=== PATIENT | male | born 1970 | race Caucasian/White ===

== ENCOUNTER 2017-09-03 21:29 | Inpatient (IN) | payer BC, OTHER ==
[2017-09-03] MEDS ORDERED: PIPER-TAZO 3.375 GM IV (PMX) 100 ML IVPB (21:52)
[2017-09-03] MEDS: HYDROmorphONE 1 MG/5 ML IV SYRINGE IV (22:34)
[2017-09-03] MEDS: ONDANSETRON 4 MG INJ IV (22:34)
[2017-09-03] MEDS: morphine 10 MG INJ IV (22:35)
[2017-09-03] MEDS: SODIUM CHLORIDE 0.9% 1L BAG IV* (22:37)
[2017-09-03 22:45] LABS: ADD MAN DIFF? NO
[2017-09-03 22:48] LABS: ABNORMAL IP MESSAGE 1; BASOPHILS % 0.3 % (0.0-2.0); EOSINOPHILS % 0.1 % (0.0-7.0); HEMATOCRIT 42.6 % (42.0-52.0); HEMOGLOBIN 13.8 g/dl (14.0-18.0); LYMPHOCYTES # 0.5 10^3/ul (0.8-2.9); LYMPHOCYTES % 4.5 % (15.0-51.0); MEAN CORPUSCULAR HEMOGLOBIN 30.3 pg (29.0-33.0); MEAN CORPUSCULAR HGB CONC 32.4 g/dl (32.0-37.0); MEAN CORPUSCULAR VOLUME 93.4 fl (82.0-101.0); MEAN PLATELET VOLUME 9.7 fl (7.4-10.4); MONOCYTE # 0.1 10^3/ul (0.3-0.9); MONOCYTES % 1.2 % (0.0-11.0); NEUTROPHIL # 9.4 10^3/ul (1.6-7.5); NEUTROPHILS % 93.7 % (39.0-77.0); PLATELET COUNT 291 10^3/UL (140-415); POSITIVE DIFF @See below; RED BLOOD COUNT 4.56 10^6/ul (4.70-6.10); RED CELL DISTRIBUTION WIDTH 13.2 % (11.5-14.5)
[2017-09-03 23:16] LABS: ALANINE AMINOTRANSFERASE 206 IU/L (13-69); ALBUMIN 4.1 g/dl (3.3-4.9); ALBUMIN/GLOBULIN RATIO 1.36; ALKALINE PHOSPHATASE 253 IU/L (42-121); ANION GAP 17 (8-16); ASPARTATE AMINO TRANSFERASE 136 IU/L (15-46); BILIRUBIN,INDIRECT 1.1 mg/dl (0-1.1); BILIRUBIN,TOTAL 2.1 mg/dl (0.2-1.3); BLOOD UREA NITROGEN 12 mg/dl (7-20); CALCIUM 8.9 mg/dl (8.4-10.2); CARBON DIOXIDE 29 mmol/L (21-31); CHLORIDE 103 mmol/L (97-110); CREATININE 1.14 mg/dl (0.61-1.24); GLUCOSE 132 mg/dl (70-220); POTASSIUM 4.6 mmol/L (3.5-5.1); SODIUM 144 mmol/L (135-144); TOTAL PROTEIN 7.1 g/dl (6.1-8.1)
[2017-09-03 23:22] LABS: LACTIC ACID 2.5 mmol/L (0.5-2.0)
[2017-09-03 23:24] LABS: INR 1.05; PARTIAL THROMBOPLASTIN TIME 29.2 Sec (25.0-35.0); PROTIME 13.8 Sec (11.9-14.9); PT RATIO 1.1
[2017-09-03] MEDS: CEFEPIME 1GM/50 ML (PMX) 50 ML IVPB (23:28)
[2017-09-03 23:31] LABS: TROPONIN-I < 0.012 ng/ml (0.00-0.12)
[2017-09-04 00:13] LABS: LACTIC ACID 1.3 mmol/L (0.5-2.0)
[2017-09-04] MEDS: KETOROLAC 30 MG INJ IV (00:59)
[2017-09-04] MEDS: CEFTRIAXONE 1 GM/50 ML (PMX) 50 ML IVPB (01:00)
[2017-09-04] MEDS: metroNIDAZOLE 500 MG/NS (PMX) 100 ML IVPB (01:00)
[2017-09-04] MEDS: HYDROmorphONE 1 MG/5 ML IV SYRINGE IV (01:07)
[2017-09-04] MEDS: HALOPERIDOL 5 MG INJ IV (01:07)
[2017-09-04 03:47] LABS: LACTIC ACID 1.5 mmol/L (0.5-2.0)
[2017-09-04] MEDS ORDERED: ONDANSETRON 4 MG INJ IV (04:30)
[2017-09-04 05:49] LABS: ADD MAN DIFF? NO
[2017-09-04 05:52] LABS: ABNORMAL IP MESSAGE 1; BASOPHILS % 0.2 % (0.0-2.0); HEMATOCRIT 37.8 % (42.0-52.0); HEMOGLOBIN 12.4 g/dl (14.0-18.0); LYMPHOCYTES # 0.3 10^3/ul (0.8-2.9); LYMPHOCYTES % 2.3 % (15.0-51.0); MEAN CORPUSCULAR HEMOGLOBIN 30.2 pg (29.0-33.0); MEAN CORPUSCULAR HGB CONC 32.8 g/dl (32.0-37.0); MEAN CORPUSCULAR VOLUME 92.2 fl (82.0-101.0); MEAN PLATELET VOLUME 10.4 fl (7.4-10.4); MONOCYTE # 0.7 10^3/ul (0.3-0.9); MONOCYTES % 6.2 % (0.0-11.0); NEUTROPHIL # 10.6 10^3/ul (1.6-7.5); PLATELET COUNT 195 10^3/UL (140-415); POSITIVE DIFF @See below; RED CELL DISTRIBUTION WIDTH 13.3 % (11.5-14.5)
[2017-09-04 05:52] LABS: WHITE BLOOD COUNT 11.7 10^3/ul (4.8-10.8)
[2017-09-04] MEDS: PANTOPRAZOLE (EC) 40 MG TAB PO (06:11)
[2017-09-04 06:21] LABS: NEUTROPHILS % 90.8 % (39.0-77.0)
[2017-09-04 06:25] LABS: ANION GAP 15 (8-16); BLOOD UREA NITROGEN 13 mg/dl (7-20); CALCIUM 7.5 mg/dl (8.4-10.2); CARBON DIOXIDE 21 mmol/L (21-31); CHLORIDE 110 mmol/L (97-110); CREATININE 1.09 mg/dl (0.61-1.24); GLUCOSE 104 mg/dl (70-220); MAGNESIUM 1.4 mg/dl (1.7-2.5); PHOSPHORUS 2.2 mg/dl (2.5-4.9); POTASSIUM 3.9 mmol/L (3.5-5.1); SODIUM 142 mmol/L (135-144)
[2017-09-04] MEDS: morphine 2 MG INJ IV ×4 (08:30→21:49)
[2017-09-04] MEDS: MAGNESIUM SULFATE 3 GM in DEXTROSE 5% 100 ML IVPB (08:32)
[2017-09-04] MEDS: VALSARTAN 80 MG TAB PO (08:42)
[2017-09-04] MEDS: NEBIVOLOL 5 MG TAB PO (08:42)
[2017-09-04] MEDS: AMIODARONE 200 MG TAB PO (08:44)
[2017-09-04] MEDS: LEVOFLOXACIN 500MG/D5W (PMX) 100 ML IVPB (09:00)
[2017-09-04 09:02] LABS: ALANINE AMINOTRANSFERASE 156 IU/L (13-69); ALBUMIN 3.2 g/dl (3.3-4.9); ALKALINE PHOSPHATASE 181 IU/L (42-121); ASPARTATE AMINO TRANSFERASE 111 IU/L (15-46); BILIRUBIN,INDIRECT 1.4 mg/dl (0-1.1); BILIRUBIN,TOTAL 3.4 mg/dl (0.2-1.3); TOTAL PROTEIN 5.8 g/dl (6.1-8.1)
[2017-09-04] MEDS: ACETAMINOPHEN 325 MG TAB PO ×2 (12:10→17:52)
[2017-09-04] MEDS: ERTAPENEM SODIUM 1 GM in SOD CHLORIDE 0.9% 100 ML IVPB (12:11)
[2017-09-04] MEDS: RIVAROXABAN 20 MG TABLET PO (17:52)
[2017-09-05] MEDS: morphine 2 MG INJ IV ×4 (01:56→15:16)
[2017-09-05] MEDS: ACETAMINOPHEN 325 MG TAB PO (01:56)
[2017-09-05] MEDS: ZOLPIDEM 5 MG TAB PO (02:56)
[2017-09-05] MEDS: PANTOPRAZOLE (EC) 40 MG TAB PO (05:48)
[2017-09-05 06:08] LABS: HEMATOCRIT 37.1 % (42.0-52.0); HEMOGLOBIN 12.3 g/dl (14.0-18.0); MEAN CORPUSCULAR HEMOGLOBIN 30.4 pg (29.0-33.0); MEAN CORPUSCULAR HGB CONC 33.2 g/dl (32.0-37.0); MEAN CORPUSCULAR VOLUME 91.8 fl (82.0-101.0); MEAN PLATELET VOLUME 10.4 fl (7.4-10.4); PLATELET COUNT 187 10^3/UL (140-415); POSITIVE DIFF @See below; RED BLOOD COUNT 4.04 10^6/ul (4.70-6.10); RED CELL DISTRIBUTION WIDTH 13.7 % (11.5-14.5)
[2017-09-05 06:08] LABS: WHITE BLOOD COUNT 16.1 10^3/ul (4.8-10.8)
[2017-09-05 06:37] LABS: ALANINE AMINOTRANSFERASE 126 IU/L (13-69); ALBUMIN 2.6 g/dl (3.3-4.9); ALBUMIN/GLOBULIN RATIO 1.13; ALKALINE PHOSPHATASE 140 IU/L (42-121); ANION GAP 10 (8-16); ASPARTATE AMINO TRANSFERASE 58 IU/L (15-46); BILIRUBIN,INDIRECT 1.1 mg/dl (0-1.1); BILIRUBIN,TOTAL 3.8 mg/dl (0.2-1.3); BLOOD UREA NITROGEN 19 mg/dl (7-20); CALCIUM 7.8 mg/dl (8.4-10.2); CARBON DIOXIDE 25 mmol/L (21-31); CHLORIDE 108 mmol/L (97-110); CREATININE 1.04 mg/dl (0.61-1.24); GLUCOSE 104 mg/dl (70-220); POTASSIUM 4.4 mmol/L (3.5-5.1); SODIUM 139 mmol/L (135-144); TOTAL PROTEIN 4.9 g/dl (6.1-8.1)
[2017-09-05 06:39] LABS: MAGNESIUM 2.3 mg/dl (1.7-2.5)
[2017-09-05 06:39] LABS: PHOSPHORUS 2.6 mg/dl (2.5-4.9)
[2017-09-05 07:01] LABS: ADD MAN DIFF? YES
[2017-09-05 08:03] LABS: BAND NEUTROPHILS % (M) 19 % (0-4); EOSINOPHILS % (M) 1 % (0-7); LYMPHOCYTES #M 0.8 10^3/ul (0.8-2.9); LYMPHOCYTES % (M) 5 % (15-51); MONOCYTE #M 0.8 10^3/ul (0.3-0.9); MONOCYTES % (M) 5 % (0-11); PLATELET ESTIMATE NORMAL; SEG NEUT #M 11.8 10^3/ul (1.6-7.5); SEGMENTED NEUTROPHILS (M) % 70 % (39-77); SMUDGE%M 4 % (0-0)
[2017-09-05] MEDS: VALSARTAN 80 MG TAB PO (08:43)
[2017-09-05] MEDS: AMIODARONE 200 MG TAB PO (08:44)
[2017-09-05] MEDS: NEBIVOLOL 5 MG TAB PO (08:45)
[2017-09-05] MEDS: ERTAPENEM SODIUM 1 GM in SOD CHLORIDE 0.9% 100 ML IVPB (12:52)
[2017-09-05] MEDS ORDERED: MEROPENEM 1 GM/50ML(PMX) 50 ML IVPB (21:00)
== END 2017-09-05 16:55 | disposition short-term general hospital (02) | DRG 444 ==
LOC: MS2 09-04 02:20 → E/R 21:29
DX: K80.10 Calculus of gallbladder with chronic cholecystitis without obstruction (principal); A41.9 Sepsis, unspecified organism; K83.0 Cholangitis; Z98.84 Bariatric surgery status; F40.240 Claustrophobia; I10 Essential (primary) hypertension
CPT/HCPCS: 36415; 71045; 74176; 76705; 80048; 80053; 80076; 83605; 83735; 84100; 84484; 85025; 85610; 85730; 87040; 93005; 96365; 96366; 96375; 96376; 99291-25